=== PATIENT | female | born 1940 | race Caucasian/White ===

== ENCOUNTER 2017-03-06 05:27 | Inpatient (IN) | payer OTHER ==
[2017-02-27 13:15] LABS: BASOPHILS 0.6 %; BASOPHILS ABSOLUTE 0.05 10/3/uL (0.0-0.16); EOSINOPHILS 4.3 %; EOSINOPHILS ABSOLUTE 0.34 10/3/uL (0.0-0.53); HEMOGLOBIN 11.2 g/dL (12.0-16.0); IMMATURE GRANULOCYTES 0.1 %; IMMATURE GRANULOCYTES ABSOLUTE 0.01 10/3/uL (0.0-0.11); LYMPHOCYTES 28.1 %; LYMPHOCYTES ABSOLUTE 2.22 10/3/uL (0.67-4.30); MEAN CORPUS HGB CONC 31.8 g/dL (32.0-36.0); MEAN CORPUSCULAR HEMOGLOB 26.6 pg (26.0-34.0); MEAN PLATELET VOLUME 9.6 fL (9.2-13.0); MONOCYTES 8.2 %; MONOCYTES ABSOLUTE 0.65 10/3/uL (0.21-1.20); NEUTROPHILS 58.7 %; NEUTROPHILS ABSOLUTE 4.62 10/3/uL (2.02-8.40); PLATELET COUNT 264 10/3/uL (150-400); RBC DISTRIBUTION WIDTH 15.3 % (12.0-16.0); RED CELL COUNT 4.21 10/6/uL (4.0-5.6); WHITE BLOOD CELLS 7.9 10/3/uL (4.5-10.5)
[2017-02-27 13:19] LABS: HEMATOCRIT 35.2 % (36.0-48.0); MANUAL DIFF NO %; MEAN CORPUSCULAR VOLUME 83.6 fL (80-100)
[2017-02-27 13:25] LABS: INTERNATIONAL NORMAL RATI 1.1 UNITS (-); PROTIME (NOT ORD) 14.2 SEC (12.0-14.5)
[2017-02-27 13:30] LABS: CALCIUM, SERUM 10.2 MG/DL (8.5-10.4); CHLORIDE, SERUM 107 MMOL/L (96-112); CO2 (CARBON DIOXIDE) 27 MMOL/L (24-34); GFR AFRICAN AMERICAN 51 ML/MIN (>=60); GFR NON AFRICAN AMERICAN 44 ML/MIN (>=60); GLUCOSE, SERUM 94 MG/DL (60-99); POTASSIUM, SERUM 4.8 MMOL/L (3.5-5.3); SODIUM, SERUM 141 MMOL/L (135-148)
[2017-02-27 13:31] LABS: BUN (BLOOD UREA NITROGEN) 30 MG/DL (6-23)
[2017-02-27 14:19] LABS: ASCORBIC ACID (UR NOT ORDER) NEG (NEG); BILIRUBIN, URINE NEGATIVE (NEG); KETONE, URINE NEGATIVE (NEG); LEUKOCYTE ESTERASE(NOT OR LARGE (NEG); WBC (NOT ORDERED) (RFLEX) 182 (0-5)
--- NOTE | ~2017-03-06 | OP ---
Record Of Operation [facility] [address] [place]. [address] NAME: JUDY LEZAMA : 40 STATUS : ADM IN PAT#: [id number] AGE: 76 ADM/REG DATE : 03/06/17 MR#: [id number] REPORT SERV DATE: 03/07/17 DICTATED BY: MAREK ARITA DATE: 03/06/17 REPORT STATUS : Draft TRANSCRIBED BY: MODL DATE: 03/06/17 DATE OF PROCEDURE: 03/06/2017 SURGEON: Marek Arita MD OPERATIVE ASSIST: SHRUTHI Bourgeois COMPLICATIONS: None. ESTIMATED BLOOD LOSS: Less than 75 mL. DISPOSITION: Stable to recovery room. ANESTHESIA: General with interscalene block augmentation for postoperative pain control. PREOPERATIVE DIAGNOSES: 1. Left shoulder pain. 2. End-stage glenohumeral joint osteoarthritis. POSTOPERATIVE DIAGNOSES: 1. Left shoulder pain. 2. End-stage glenohumeral joint osteoarthritis. PROCEDURES: 1. Left shoulder examination under anesthesia. 2. Left total shoulder arthroplasty using Biomet comprehensive total shoulder system. IMPLANTS USED: A medium glenoid with Regenerex post, a 10 mm mini-humeral stem, and a 46 mm modular head with a variable offset. OPERATIVE PROCEDURE: The diagnoses listed above as well as the recommended surgical procedure and risks and benefits thereof were discussed in full detail with Judy Lezama and family on the morning of 03/06/2017. The patient and family asked appropriate questions which were answered to their satisfaction. An informed consent was signed, witnessed, and place in the chart. The right upper extremity was marked for confirmation and an interscalene block was placed by the anesthesia team with good success. The patient was then wheeled to the operative arena where general endotracheal anesthesia was administered. The patient was placed in the beachchair positioner with all nonoperative extremities and head well-padded and secured for the duration of the case. The patient received pre- operative antibiotics. A surgical pause was performed confirming both the correct patient as well as the proper surgical site and procedure. All present were in agreement. All standard anatomical landmarks as well as deltopectoral incision site were demarcated using a sterile marking pin. A 10-blade was used to create an 8 cm curvilinear incision just lateral to the coracoid process and directed towards the lateral insertion of the deltoid. The soft tissues were dissected down sharply to expose the deltopectoral fascia. Record Of Operation [facility] [address] [place]. [address] NAME: JUDY LEZAMA : 40 STATUS : ADM IN PAT#: [id number] AGE: 76 ADM/REG DATE : 03/06/17 MR#: [id number] REPORT SERV DATE: 03/07/17 DICTATED BY: MAREK ARITA DATE: 03/06/17 REPORT STATUS : Draft TRANSCRIBED BY: BRET DATE: 03/06/17 The cephalic vein and the fat stripe were identified. The vein was retracted medially using careful sharp dissection. Next, a [place] Castro retractor was placed retracting the deltoid laterally and the pectoralis and coracobrachialis medially. The deltopectoral interval was the further exposed and the clavipectoral fascia was identified. Electrocautery was used to split the clavipectoral fascia exposing the anterior surface of the subscapularis. The lesser tuberosity was identified and the subscapularis was released 1 cm medial to the lesser tuberosity. The subscapularis was then tagged using Fiber Wire suture for later repair. The biceps tendon was then released and tagged as well for later tenodesis. The glenohumeral joint was then dislocated and the humeral head was brought out the operative wound very carefully. All osteophytes were then removed using a rongeur. Our starting awl was used with increasing sizes of diaphyseal reamers to obtain the best fit with excellent cortical chatter. The intramedullary cutting jig was then assembled and set with the appropriate version to meet the patient's normal anatomy. An oscillating saw was then used to make our proximal humeral cut. The proximal humeral portion of the head was then taken to the back table and measured and matched up with our trial implants. Next, the broaches were used in increasing sizes up to the size which fit most perfectly. The head protector was placed and the proximal humerus was retracted posteriorly and inferiorly out of the way of the glenoid. The labrum was then excised in full using electrocautery. All additional osteophytes and osteochondral loose bodies were removed. Next, the glenoid reamers were used to ream the glenoid down to a healthy bleeding bone surface. Our central peg hole was then drilled and our peg guide was used to drill the subsequent three peg holes. A coring drill was then used to core for the glenoid post. A trial glenoid was then placed and found to fit perfectly. Next, the cement was mixed and placed into the peg holes. A polyethylene glenoid was assembled with an appropriate post and tapped into place. An excellent scratch fit was obtained. Pulsatile lavage was used to irrigate this implant as well as the glenohumeral joint. The proximal humerus was again brought out the operative wound. Trial humeral head implants were then tested. The stem was implanted into the proximal humerus after copious irrigation with sterile saline. This was impacted into place. Our Versa Dial was set and then impacted on the back table with an excellent Vela-Taper fit. This was then placed into the proximal humeral stem component and impacted into place with excellent security. At this juncture, the glenohumeral joint was then reduced once again. The glenohumeral joint alignment was near anatomic. Irrigation was used under pulsatile lavage to irrigate out the operative wound as well as the implants. Bone holes had been predrilled through the lesser tuberosity and four #2 Fiber Wire sutures were passed through this region. These were then taken through the soft tissues laterally and then tied down to our previously placed subscapularis sutures. An excellent repair of the subscapularis was obtained back down to the lesser tuberosity with no instability whatsoever. The biceps tendon was then tenodesed. The rotator interval was then closed also with #2 Fiber Wire suture. This layer was then again washed out with pulsatile lavage and copious amounts of sterile normal saline. The deltopectoral interval was closed with 2-0 undyed Vicryl. 2-0 undyed Vicryl was used to close the subcutaneous layer and a running Monocryl was placed below the skin. Steri-Strips were applied. Sterile dressing was then secured with Medipore tape. The patient was placed in an Ultra-Sling for post-operative immobilization. The patient was then awakened from anesthesia without difficulty and transferred to the post-anesthesia care unit in stable condition where the postoperative examination was within normal limits understanding that Record Of Operation [facility] [address] [facility] [place] [address] NAME: JUDY LEZAMA OLLIE : 40 STATUS : ADM IN PAT#: [id number] AGE: 76 ADM/REG DATE : 03/06/17 MR#: [id number] REPORT SERV DATE: 03/07/17 DICTATED BY: MAREK ARITA. DATE: 03/06/17 REPORT STATUS : Draft TRANSCRIBED BY: BRET DATE: 03/06/17 the interscalene block was still in effect. A lengthy discussion was held with the patient's family detailing all operative findings as well as procedures performed with all questions answered to their satisfaction. CCS/BRET Marek Arita M.D. / [id number] CC: Marek Airta M.D.
[~2017-03-06 05:27] MED LIST: ASAB PO; ASAEC PO; ATEN50 PO; BACDS PO; C5 PO; CALGLUCTAB PO; CALTRA600D PO; CLARIT10 PO; D.O.S.100 MG PO; DECONG PO; FISH OIL1200 MG PO; K500 PO; MAGOX4 PO; MAX25 PO; MOBIC15 MG PO; MULTIPLE VIT PO; NAP500 PO; NORCO1 TA2 PO; OMEGA 3550 MG PO; OXYCOD PO; OXYCON10 PO; PCET PO; POTASSIUM GLUCO99 MG PO; POTASSIUM95 MG PO; PRILO PO; PROAIR HFA INH; SYMBICORT 160/41 INH INH; ULTRAM50 PO; VITAMIN C100 M1 PO; VITC500 PO; ZOFRAN4 PO
[2017-03-07 07:35] LABS: HEMATOCRIT 33.4 % (36.0-48.0); HEMOGLOBIN 10.6 g/dL (12.0-16.0)
[2017-03-07 07:40] LABS: CALCIUM, SERUM 9.4 MG/DL (8.5-10.4); CHLORIDE, SERUM 105 MMOL/L (96-112); CO2 (CARBON DIOXIDE) 27 MMOL/L (24-34); CREATININE 0.98 MG/DL (0.55-1.02); GFR AFRICAN AMERICAN 65 ML/MIN (>=60); GFR NON AFRICAN AMERICAN 56 ML/MIN (>=60); GLUCOSE, SERUM 110 MG/DL (60-99); POTASSIUM, SERUM 4.5 MMOL/L (3.5-5.3); SODIUM, SERUM 136 MMOL/L (135-148)
[2017-03-07 07:42] LABS: BUN (BLOOD UREA NITROGEN) 15 MG/DL (6-23)
[2017-03-07] MEDS ORDERED: PCET (09:10)
== END 2017-03-07 13:59 | disposition home or self-care (01) | DRG 483 ==
LOC: SDC/OF 05:27 → PACU 10:35 → 1SO 12:20
PROVIDERS: Specialist
PROC: 3E0T3CZ (ICD-10-PCS; 2017-03-06)
PROC: 0RRK0JZ Replacement of Left Shoulder Joint with Synthetic Substitute, Open Approach (ICD-10-PCS; principal; 2017-03-06 07:45)
DX: M19.012 Primary osteoarthritis, left shoulder (principal); I10 Essential (primary) hypertension; M75.42 Impingement syndrome of left shoulder; K21.9 Gastro-esophageal reflux disease without esophagitis; J45.909 Unspecified asthma, uncomplicated; Z79.82 Long term (current) use of aspirin; Z79.1 Long term (current) use of non-steroidal anti-inflammatories (NSAID); Z79.899 Other long term (current) drug therapy; Z88.0 Allergy status to penicillin
CPT/HCPCS: 36415; 73030-LT; 80048; 81001; 85014; 85018; 85025; 85610; 86850; 86900; 86901; 87086; 87641; 88305; 88311; 93005; 97110-GP; 97116-GP; 97161-GP; 97530-GP; A9270-GY; C1776; J0690; J2250; J2370; J2405; J2710; J2795; J3010